=== PATIENT | male | born 1970 | race Caucasian/White ===

== ENCOUNTER 2018-10-08 16:37 | Inpatient (IN) | payer BC, OTHER ==
[~2018-10-08] VITALS: Ht 180.3 cm; Wt 92.1 kg
--- NOTE | 2018-10-08 16:51 | NUR ---
PT AMBULATORY, C/O GROIN AREA DISCOMFORT AND REDNESS SINCE WEDNESDAY. PT STATES ALREADY SEEN BY PMD AND IS ON CIPRO BUT SYMPTOMS NOT RELIEVED. 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 GOWNED AND PLACED ON MONITOR. AWAITING MD DANIELSON.
--- NOTE | 2018-10-08 16:57 | NUR ---
DR HENDERSON AT BEDSIDE FOR EVAL.
[2018-10-08 17:15] LABS: BASOPHILS % (AUTO) 0.3 % (0.0-2.0); EOSINOPHILS % (AUTO) 1.3 % (0.0-6.0); HEMATOCRIT 44 % (39-51); LYMPHOCYTES # (AUTO) 0.6 /CMM (0.8-4.8); LYMPHOCYTES % (AUTO) 6.5 % (20.0-44.0); MEAN CORPUSCULAR HGB CONC 34 g/dl (31.0-36.0); MEAN CORPUSCULAR VOLUME 94 fL (80-96); MONOCYTES # (AUTO) 0.8 /CMM (0.1-1.30); MONOCYTES % (AUTO) 8.3 % (2.0-12.0); NEUTROPHILS # (AUTO) 7.8 /CMM (1.8-8.9); NEUTROPHILS % (AUTO) 83.6 % (43.0-81.0); PLATELET COUNT (AUTO) 167 /CMM (150-450); RED BLOOD CELL COUNT(AUTO) 4.62 MIL/uL (4.5-6.0); WHITE BLOOD COUNT (AUTO) 9.4 K/uL (4.3-11.0)
[2018-10-08 17:29] LABS: CALCIUM, SERUM 8.8 mg/dL (8.5-10.1); CARBON DIOXIDE 27 mmol/L (21-32); CHLORIDE 101 mmol/L (98-107); CREATININE 1.2 mg/dL (0.6-1.3); GLUCOSE 100 mg/dL (74-106); SODIUM SERUM 138 mmol/L (136-145); UREA NITROGEN, BLOOD 12 mg/dL (7-18)
[2018-10-08] MEDS ORDERED: IV NS 0.9% 1,000 ML BAG IV ONE (17:30)
[2018-10-08] MEDS ORDERED: ACETAMINOPHEN ES 500 MG TABLET PO ONE (17:30)
[2018-10-08] MEDS ORDERED: PIPERACILLIN /TAZOBACTAM 3.375 G in IV D5W 50 ML IV ONE (17:30)
[2018-10-08 17:34] LABS: ALANINE AMINOTRANSFERASE 47 U/L (12-78); ALBUMIN 3.8 g/dL (3.4-5.0); ALKALINE PHOSPHATASE 91 U/L (46-116); ASPARTATE AMINOTRANSFERASE 22 U/L (15-37); BILIRUBIN,DIRECT 0.2 mg/dL (0.0-0.2); TOTAL PROTEIN, SERUM 7.8 g/dL (6.4-8.2)
[2018-10-08] MEDS ORDERED: ACETAMINOPHEN ES 500 MG TABLET ONE (17:34)
[2018-10-08] MEDS ORDERED: CT SWABBABLE VALVE TRANS SET 1 EA INFUS.SET MC ONE (17:43)
[2018-10-08] MEDS ORDERED: IOHEXOL-300 100 ML VIAL IV ONE (17:43)
[2018-10-08] MEDS ORDERED: IV NS 0.9% 250 ML IV ONE (17:43)
--- NOTE | 2018-10-08 17:52 | NUR ---
PATIENT TO CT.
--- NOTE | 2018-10-08 17:56 | NUR ---
MED-SURGE BED 310-2
--- NOTE | 2018-10-08 18:03 | NUR ---
REPORT GIVEN TO MARIBEL JAVIER. PT AWAITING TRANSFER TO FLOOR.
--- NOTE | 2018-10-08 18:04 | NUR ---
PAGED EPIC DR KWAN)
[2018-10-08] MEDS: VANCOMYCIN 1 GM in IV D5W 250 ML IV ONE (18:15)
[2018-10-08] MEDS ORDERED: CIPR250T4 PO (18:20)
[2018-10-08] MEDS ORDERED: OMEP20CA11 PO (18:20)
[2018-10-08 18:45] LABS: APPEARANCE,URINE Clear (CLEAR); BILIRUBIN,URINE Negative (NEGATIVE); BLOOD, URINE Negative Ery/uL (NEGATIVE); COLOR,URINE Yellow (YELLOW); KETONES,URINE 15 (NEGATIVE); LEUKOCYTE ESTERASE ,URINE Negative (NEGATIVE); NITRITE, URINE Negative (NEGATIVE); PH,URINE 6.5 (5.0-8.0); PROTEIN,URINE Negative (NEGATIVE); UGLUCOSE Negative (NEGATIVE); UROBILINOGEN,URINE 0.2 EU/dL (0.2)
--- NOTE | 2018-10-08 19:20 | NUR ---
report given to sara mariscal.
[2018-10-08 21:00] VITALS: BP 130/51
[2018-10-08] MEDS ORDERED: ACETAMINOPHEN 325 MG TABLET PO PRN (21:00)
[2018-10-08] MEDS ORDERED: ONDANSETRON HCL/PF 4 MG/2 ML VIAL IVP PRN (21:00)
[2018-10-08] MEDS ORDERED: MAG HYDROX/AL HYDROX/SIMETH 30 ML UDC PO PRN (21:00)
[2018-10-08] MEDS ORDERED: HYDROCODONE/APAP 10/325MG 1 EA TABLET PO PRN (21:00)
[2018-10-08] MEDS ORDERED: MAGNESIUM HYDROXIDE 30 ML UDC PO PRN (21:00)
[2018-10-08] MEDS ORDERED: MORPHINE SULFATE INJ 4 MG/ML DISP.SYRIN IV PRN (21:00)
[2018-10-08] MEDS: IV NS 0.9% 1,000 ML IV PRN (21:31)
--- NOTE | 2018-10-08 23:30 | NUR ---
MSD/RN RECEIVED PATIENT AT 21:00 FROM [facility]. PATIENT WAS AWAKE, ALERT, ORIENTED, COMFORTABLE, NO C/O PAIN, NO DISTRESS NOTED, ADMISSION DONE PER PROTOCOL, TOOK PHOTO OF THE CELLULITIS, REFUSED SKIN ASSESSMENT, PLAN OF CARE DISCUSSED, VERBALIZED UNDERSTANDING AND AGREEMENT, WILL MONITOR.
[2018-10-09] MEDS ORDERED: PIPERACILLIN /TAZOBACTAM 3.375 G in IV D5W 50 ML IV SCH ×2
[2018-10-09] MEDS ORDERED: PIPERACILLIN /TAZOBACTAM 3.375 G VIAL IV ONE (00:34)
[2018-10-09] MEDS: ZOLPIDEM TARTRATE 5 MG TABLET PO PRN ×2 (00:48→22:59)
[2018-10-09] MEDS ORDERED: VANCOMYCIN 500 MG VIAL ONE (05:00)
[2018-10-09] MEDS ORDERED: VANCOMYCIN 1.25 GM in IV D5W 500 ML IV ONE (05:00)
[2018-10-09] MEDS ORDERED: VANCOMYCIN 1 GM VIAL ONE (05:23)
--- NOTE | 2018-10-09 05:35 | NUR ---
MS/RN VANCOMYCIN TOTAL 1500 MG WAS OVERRIDDEN (500 MG BY REAMER HAND, 1,000MG BY THE DIGITAL RECRUITER), 1,250 MG WAS ADMINISTERED ORDERED.
[2018-10-09 06:09] LABS: BASOPHILS % (AUTO) 0.4 % (0.0-2.0); EOSINOPHILS % (AUTO) 1.9 % (0.0-6.0); HEMATOCRIT 40 % (39-51); HEMOGLOBIN 13.6 g/dL (13.5-17.5); LYMPHOCYTES # (AUTO) 1.1 /CMM (0.8-4.8); MEAN CORPUSCULAR HGB CONC 34 g/dl (31.0-36.0); MEAN CORPUSCULAR VOLUME 95 fL (80-96); MONOCYTES # (AUTO) 0.8 /CMM (0.1-1.30); MONOCYTES % (AUTO) 8.8 % (2.0-12.0); NEUTROPHILS # (AUTO) 7.3 /CMM (1.8-8.9); NEUTROPHILS % (AUTO) 76.9 % (43.0-81.0); PLATELET COUNT (AUTO) 146 /CMM (150-450); RED BLOOD CELL COUNT(AUTO) 4.18 MIL/uL (4.5-6.0); WHITE BLOOD COUNT (AUTO) 9.5 K/uL (4.3-11.0)
--- NOTE | 2018-10-09 06:19 | NUR ---
MS/RN PATIENT IS STILL SLEEPING AT THIS TIME, APPEAR COMFORTABLE, NO SIGNS OF DISTRESS NOTED, CALL LIGHT IN REACH, ALL NEEDS ATTENDED AT THIS TIME, WILL CONTINUE TO MONITOR.
[2018-10-09 06:40] LABS: CALCIUM, SERUM 8.1 mg/dL (8.5-10.1); CREATININE 1.1 mg/dL (0.6-1.3); MAGNESIUM 1.9 mg/dL (1.8-2.4); PHOSPHORUS 3.3 mg/dL (2.5-4.9); POTASSIUM 3.7 mmol/L (3.5-5.1)
[2018-10-09] MEDS ORDERED: FEE PK DOSING 1 MIN EA MC ONE (07:02)
[2018-10-09 08:00] VITALS: BP 101/59
[2018-10-09 08:05] VITALS: BP 101/59
[2018-10-09] MEDS: PIPERACILLIN /TAZOBACTAM 3.375 G in IV D5W 50 ML IV SCH ×4 (08:58→23:01)
[2018-10-09] MEDS: IV NS 0.9% 1,000 ML IV PRN (13:59)
[2018-10-09 15:48] VITALS: BP 116/72
[2018-10-09] MEDS: VANCOMYCIN 1.25 GM in IV D5W 500 ML IV SCH (17:01)
[2018-10-09] MEDS: LACTOBACILLUS RHAMNOSUS GG 1 EACH CAP.SPRINK PO SCH (17:02)
--- NOTE | 2018-10-09 18:48 | NUR ---
Patient resting in bed with no distress noted, a/ox4 . Patient in stable condition on room air saturating 99 %.No complain of pain at this time. All needs attended. Safety precautions in place, call light within reach.Will endorse to next shift for AMANDA.
--- NOTE | 2018-10-09 19:00 | NUR ---
RN MS OPENING NOTES RECEIVED PATIENT IN BED AWAKE ALERT AND ORIENTED X 4, RESPIRATIONS EVEN AND UNLABORED WITH EQUAL RISE AND FALL OF CHEST, DENIES ANY PAIN OR DISCOMFORT AT THIS TIME, ON ASSESSMENT RIGHT GROIN SITE WITH REDNESS, SKIN REMAINS INTACT, NO DRAINAGE PRESENT, URINAL AT BEDSIDE WITHIN REACH, IV SITE TO LEFT AC #18 G INTACT AND PATENT, IVF RUNNING ORDERED, NO REDNESS, NO INFILTRATION PRESENT, ORIENTED TO STAFF AND CALL LIGHT AND KEPT WITHIN REACH, SAFETY PRECAUTIONS IN PLACE, LOW BED AND LOCKED, ALL NEEDS ATTENDED WILL CONTINUE TO MONITOR AND ATTEND TO NEEDS.
[2018-10-09 20:00] VITALS: BP 115/65
--- NOTE | 2018-10-09 22:59 | NUR ---
RN MS NOTES PATIENT COMPLAINT OF HEADACHE AND UNABLE TO SLEEP , REQUESTING FOR PAIN MEDICATION AND SLEEP MEDICATION OFFERED TYLENOL AND AMBIEN , PATIENT AGREED TO TAKE, PRN TYLENOL AND AMBIEN GIVEN , WILL CONTINUE TO MONITOR FOR EFFECTIVENESS, LIGHTS DIMMED.
[2018-10-10] VITALS (9 sets, daily range): BP systolic 106–131; BP diastolic 56–75
[2018-10-10] MEDS: PIPERACILLIN /TAZOBACTAM 3.375 G in IV D5W 50 ML IV SCH ×3 (05:06→18:53)
[2018-10-10] MEDS: IV NS 0.9% 1,000 ML IV PRN (05:42)
[2018-10-10 06:20] LABS: BASOPHILS % (AUTO) 0.5 % (0.0-2.0); EOSINOPHILS % (AUTO) 3.8 % (0.0-6.0); HEMATOCRIT 39 % (39-51); HEMOGLOBIN 13.1 g/dL (13.5-17.5); LYMPHOCYTES # (AUTO) 1.1 /CMM (0.8-4.8); LYMPHOCYTES % (AUTO) 15.3 % (20.0-44.0); MEAN CORPUSCULAR HGB CONC 34 g/dl (31.0-36.0); MEAN CORPUSCULAR VOLUME 95 fL (80-96); MONOCYTES # (AUTO) 0.7 /CMM (0.1-1.30); MONOCYTES % (AUTO) 9.1 % (2.0-12.0); NEUTROPHILS # (AUTO) 5.2 /CMM (1.8-8.9); NEUTROPHILS % (AUTO) 71.3 % (43.0-81.0); PLATELET COUNT (AUTO) 156 /CMM (150-450); RED BLOOD CELL COUNT(AUTO) 4.06 MIL/uL (4.5-6.0); WHITE BLOOD COUNT (AUTO) 7.3 K/uL (4.3-11.0)
--- NOTE | 2018-10-10 06:23 | NUR ---
RN MS CLOSING NOTES PATIENT IN BED AWAKE ALERT AND ORIENTED X 4, RESPIRATIONS EVEN AND UNLABORED WITH EQUAL RISE AND FALL OF CHEST, DENIES ANY PAIN OR DISCOMFORT AT THIS TIME, ON ASSESSMENT RIGHT GROIN SITE WITH REDNESS, SKIN REMAINS INTACT, NO DRAINAGE PRESENT, URINAL AT BEDSIDE WITHIN REACH 900ML OUT PUT URINE YELLOW, IV SITE TO LEFT AC #18 G INTACT AND PATENT, IVF RUNNING ORDERED, NO REDNESS, NO INFILTRATION PRESENT CALL LIGHT KEPT WITHIN REACH, AMBIEN AND TYLENOL WAS EFFECTIVE PATIENT SLEPT WELL , SAFETY PRECAUTIONS IN PLACE, LOW BED AND LOCKED, ALL NEEDS ATTENDED WILL CONTINUE TO MONITOR AND ATTEND TO NEEDS AND ENDORSE TO NEXT SHIFT.
[2018-10-10 06:29] LABS: CALCIUM, SERUM 8.4 mg/dL (8.5-10.1); CREATININE 1.1 mg/dL (0.6-1.3); POTASSIUM 3.8 mmol/L (3.5-5.1)
[2018-10-10] MEDS: VANCOMYCIN 1.25 GM in IV D5W 500 ML IV SCH ×3 (06:48→22:44)
--- NOTE | 2018-10-10 07:30 | NUR ---
MS RN OPENING NOTES RECEIVED PATIENT IN BED. A/O X4. PATIENT IS ON ROOM AIR. RESPIRATION EVEEN AND UNLABORED. DENIES SOB. DENIES PAIN AT THIS TIME. NO APPARENT DISTRESS AT THIS TIME. IV ACCESS LEFT AC GAUGE 18 RUNNING NS@75ML/HR. BED IS LOW AND LOCKED. CALL LIGHT WITHIN REACH. WILL CONTINUE TO MONITOR.
[2018-10-10] MEDS: LACTOBACILLUS RHAMNOSUS GG 1 EACH CAP.SPRINK PO SCH ×2 (08:51→18:52)
--- NOTE | 2018-10-10 11:47 | NUR ---
MS RN NOTE PATIENT VERBALIZED THE WOUND ON THE GROIN IS GETTING "DARKER". DEV MATRIX BATH OPERATOR NOTIFIED.
--- NOTE | 2018-10-10 12:00 | NUR ---
MS RN NOTE DR. HEARD SAW AND SPOKE WITH THE PATIENT ABOUT SURGERY. NPO [address] HEARD.
--- NOTE | 2018-10-10 16:01 | NUR ---
MS RN NOTE PATIENT LEFT FOR SURGERY IN STABLE CONDITION.
[2018-10-10] MEDS ORDERED: FENTANYL PF 250MCG/5ML AMPUL ONE (16:28)
[2018-10-10] MEDS ORDERED: MIDAZOLAM HCL 2 MG/2ML VIAL ONE (16:28)
[2018-10-10] MEDS ORDERED: FAMOTIDINE/PF INJ 20 MG/2 ML VIAL IV ONE (16:28)
[2018-10-10] MEDS ORDERED: BUPIVACAINE 0.25% 75 MG/30 ML VIAL ONE (16:36)
[2018-10-10] MEDS ORDERED: HYDROGEN PEROXIDE 480 ML BOTTLE ONE (16:52)
[2018-10-10] MEDS ORDERED: HYDROMORPHONE 1 MG/1 ML DISP.SYRIN ONE (17:16)
--- NOTE | 2018-10-10 18:20 | NUR ---
MS RN NOTE PATIENT IS BACK FROM THE OR IN BED. A/O X4. ON ROOM AIR. SAT 96%. RESPIRATION ARE REGULAR AND NONLABORED. DENIES PAIN AT THIS TIME. BILATERAL PULSES WNL. RIGHT GROIN DRESSING INTACT. NO BLEEDING OR DISCHARGE NOTED AT THIS TIME. WILL CONTINUE TO MONITOR.
--- NOTE | 2018-10-10 18:21 | NUR ---
MS RN CLOSING NOTE PATIENT RESTING IN BED. ON ROOM AIR, SAT 98%. RESPIRATION EVEN AND NONLABORED. DENIES PAIN AT THIS TIME. NO APPARENT DISTRESS NOTED. IV ACCESS IN LEFT AC RUNNING NS @75ML/HR. NO COMPLAINTS OF INTOLERABLE PAIN DURING SHIFT. ALL NURSES NEEDS MET. BED IS LOW AND LOCKED. CALL LIGHT WITHIN REACH. WILL ENDORSE TO OPERATION RESEARCH ANALYST FOR AMANDA.
[2018-10-10] MEDS ORDERED: HYDROCODONE/APAP 5/325MG 1 EACH TABLET PO PRN (19:30)
[2018-10-10] MEDS ORDERED: MORPHINE SULFATE INJ 2 MG/ML DISP.SYRIN IV PRN (19:30)
--- NOTE | 2018-10-10 19:55 | NUR ---
MS/RN RECEIVED PATIENT ON BED AWAKE, ALERT, ORIENTED, COMFORTABLE, S/P I&D OF THE ABSCESS AT RT. INNER THIGH, NO C/O PAIN, NO DISTRESS NOTED, CALL LIGHT IN REACH. WILL MONITOR.
[2018-10-11] MEDS: ZOLPIDEM TARTRATE 5 MG TABLET PO PRN (00:16)
[2018-10-11 00:30] VITALS: BP 113/70
[2018-10-11] MEDS: PIPERACILLIN /TAZOBACTAM 3.375 G in IV D5W 50 ML IV SCH ×4 (00:58→17:37)
--- NOTE | 2018-10-11 06:49 | NUR ---
MS/RN PATIENT IS SLEEPING, AROUSES EASILY, APPEAR COMFORTABLE, NO SIGNS OF DISTRESS NOTE, CALL LIGHT IN REACH. ALL NEEDS ATTENDED AT THIS TIME, WILL CONTINUE TO MONITOR.
[2018-10-11] MEDS: VANCOMYCIN 1.25 GM in IV D5W 500 ML IV SCH ×2 (06:54→15:59)
[2018-10-11] MEDS: IV NS 0.9% 1,000 ML IV PRN (06:54)
[2018-10-11 07:27] LABS: CALCIUM, SERUM 8.5 mg/dL (8.5-10.1); CREATININE 0.8 mg/dL (0.6-1.3); MAGNESIUM 2.3 mg/dL (1.8-2.4); PHOSPHORUS 3.8 mg/dL (2.5-4.9); POTASSIUM 3.9 mmol/L (3.5-5.1)
[2018-10-11 07:45] LABS: BASOPHILS % (AUTO) 0.3 % (0.0-2.0); EOSINOPHILS % (AUTO) 0.2 % (0.0-6.0); HEMATOCRIT 39 % (39-51); HEMOGLOBIN 13.5 g/dL (13.5-17.5); LYMPHOCYTES # (AUTO) 0.7 /CMM (0.8-4.8); LYMPHOCYTES % (AUTO) 9.6 % (20.0-44.0); MEAN CORPUSCULAR HGB CONC 35 g/dl (31.0-36.0); MEAN CORPUSCULAR VOLUME 94 fL (80-96); MONOCYTES # (AUTO) 0.5 /CMM (0.1-1.30); MONOCYTES % (AUTO) 6.6 % (2.0-12.0); NEUTROPHILS # (AUTO) 5.8 /CMM (1.8-8.9); NEUTROPHILS % (AUTO) 83.3 % (43.0-81.0); PLATELET COUNT (AUTO) 182 /CMM (150-450); RED BLOOD CELL COUNT(AUTO) 4.16 MIL/uL (4.5-6.0); WHITE BLOOD COUNT (AUTO) 6.9 K/uL (4.3-11.0)
--- NOTE | 2018-10-11 07:50 | NUR ---
MS RN RECEIVED ON BED, AWAKE,ALERT,ORIENTED X4,NOT IN ANY FORM OF DISTRESS,RESPIRATIONS EVEN AND UNLABORED,NO SOB NOTED, ABDOMEN SOFT,POSITIVE BOWEL SOUNDS, DENIES PAIN AT THIS TIME. WILL MONITOR PATIENT'S CONDITION.
[2018-10-11 08:00] VITALS: BP 119/69
--- NOTE | 2018-10-11 09:00 | NUR ---
MS JAVIER BREAKFAST SERVED DUE MEDS GIVEN,TOLERATED WELL.
[2018-10-11] MEDS: LACTOBACILLUS RHAMNOSUS GG 1 EACH CAP.SPRINK PO SCH ×2 (09:36→17:37)
--- NOTE | 2018-10-11 11:00 | NUR ---
MS RN DR HEARD,CALLED, THAT HE IS CLEARING PATIENT, OK TO GO HOME W/ ATB PO, BECKIE NOTIFIED.
[2018-10-11] MEDS ORDERED: HYDR-4384 PO (15:11)
[2018-10-11] MEDS ORDERED: ONDA4TAB11 PO (15:11)
[2018-10-11] MEDS ORDERED: SULF1TAB48 PO (15:11)
--- NOTE | 2018-10-11 15:40 | NUR ---
MS RN` WAS SEEN BY BECKIE Zuniga/ CLYDE.
[2018-10-11 16:00] VITALS: BP 122/73
--- NOTE | 2018-10-11 16:41 | NUR ---
MS RN PATIENT WILL BE DISCHARGE TODAY.
--- NOTE | 2018-10-11 17:30 | NUR ---
ms rn dressing to right groin changed, refused to take picture of the wound, pain meds given.
--- NOTE | 2018-10-11 18:40 | NUR ---
ms rn patient went home w/ rx and discharge instruction given and understood.
== END 2018-10-11 19:00 | disposition home or self-care (01) | DRG 854 ==
LOC: ER 16:37 → MED 20:06
PROVIDERS: ADMIT Nurse Practitioner Acute Care; ATTEND Nurse Practitioner Acute Care
PROC: 0J9L0ZZ Drainage of Right Upper Leg Subcutaneous Tissue and Fascia, Open Approach (ICD-10-PCS; principal; 2018-10-10)
DX: A41.9 Sepsis, unspecified organism (principal); L02.214 Cutaneous abscess of groin; L03.314 Cellulitis of groin; K21.9 Gastro-esophageal reflux disease without esophagitis; F41.9 Anxiety disorder, unspecified; F32.9 Major depressive disorder, single episode, unspecified; Z91.013 Allergy to seafood; R50.9 Fever, unspecified
CPT/HCPCS: 36415; 72192-TC; 76882; 80048-TC; 80061-TC; 80076-TC; 80202-TC; 81000-TC; 83605-TC; 83735-TC; 84100-TC; 84484-TC; 85025-TC; 85730-TC; 87040-TC; 87070-TC; 87075-TC; 87081-TC; 87086-TC; A4217; A6253; G0378; J1100; J1170; J2250; J2405; J2543; J2704; J3010; J3370; J3490; J7030; J7040; J7050; J7060; Q9967

== ENCOUNTER → 2018-10-14 | Emergency (ER) | payer OTHER ==
[~2018-10-14] VITALS: Ht 170.2 cm; Wt 65.8 kg
[~2018-10-14] MED LIST: HYDR-4384 PO; OMEP20CA11 PO; ONDA4TAB11 PO; SULF1TAB48 PO
[2018-10-14 17:59] VITALS: BP 156/89
== END | disposition home or self-care (01) ==
LOC: ER 17:25
DX: L02.214 Cutaneous abscess of groin (principal); K21.9 Gastro-esophageal reflux disease without esophagitis; F32.9 Major depressive disorder, single episode, unspecified; F41.9 Anxiety disorder, unspecified; F10.10 Alcohol abuse, uncomplicated; Y90.9 Presence of alcohol in blood, level not specified; Z60.2 Problems related to living alone; Z91.013 Allergy to seafood

== ENCOUNTER 2018-11-15 20:32 | Emergency (ER) | payer OTHER ==
[~2018-11-15] VITALS: Ht 177.8 cm; Wt 86.2 kg
[2018-11-15 21:39] VITALS: BP 131/75
== END 2018-11-15 23:14 | disposition home or self-care (01) ==
LOC: ER 20:38
DX: R59.1 Generalized enlarged lymph nodes (principal); F32.9 Major depressive disorder, single episode, unspecified; F41.9 Anxiety disorder, unspecified; K21.9 Gastro-esophageal reflux disease without esophagitis; Z91.013 Allergy to seafood; Z60.2 Problems related to living alone; Z79.899 Other long term (current) drug therapy

== ENCOUNTER 2018-11-20 16:24 | Emergency (ER) | payer OTHER ==
[~2018-11-20] VITALS: Ht 177.8 cm; Wt 87.1 kg
--- NOTE | 2018-11-20 16:40 | NUR ---
CAME IN FOR RED AND SWOLLEN LUMP ON RIGHT ARMPIT. TO ER BED 12, HOOKED TO MONITOR, AWAITING MD DANIELSON.
--- NOTE | 2018-11-20 16:45 | NUR ---
PA FOSTER AT BEDSIDE
[2018-11-20] MEDS ORDERED: TDAP [DIPH/PERTUSSIS/TET] 0.5 ML VIAL IM ONE ×2 (17:00→17:07)
[2018-11-20] MEDS ORDERED: LIDOCAINE 1%-EPI 1:100,000 20 ML VIAL TP ONE (17:00)
[2018-11-20] MEDS ORDERED: LIDOCAINE 1% INJ 50 ML MDV IJ ONE (17:01)
[2018-11-20 17:44] VITALS: BP 128/81
--- NOTE | 2018-11-20 17:44 | NUR ---
Patient discharged to home in stable condition. Written and verbal after care instructions given. Patient verbalizes understanding of instruction.
== END 2018-11-20 17:45 | disposition home or self-care (01) ==
LOC: ER 16:27
DX: L02.411 Cutaneous abscess of right axilla (principal); F32.9 Major depressive disorder, single episode, unspecified; F41.9 Anxiety disorder, unspecified; K21.9 Gastro-esophageal reflux disease without esophagitis; F10.10 Alcohol abuse, uncomplicated; Y90.9 Presence of alcohol in blood, level not specified; Z91.013 Allergy to seafood; Z60.2 Problems related to living alone
CPT/HCPCS: 10060; 90471; 90715; 99283; A6407; J3490

== ENCOUNTER 2018-11-22 13:47 | Emergency (ER) | payer OTHER ==
[~2018-11-22] VITALS: Ht 177.8 cm; Wt 82.6 kg
[2018-11-22] MEDS ORDERED: LIDOCAINE 1%-EPI 1:100,000 20 ML VIAL ONE (14:14)
[2018-11-22] MEDS ORDERED: IBUPROFEN 600 MG TABLET PO ONE (15:00)
[2018-11-22 15:56] VITALS: BP 118/79
--- NOTE | 2018-11-22 16:01 | NUR ---
Patient discharged to home in stable condition. Written and verbal after care instructions given. Patient verbalizes understanding of instruction.
== END 2018-11-22 16:02 | disposition home or self-care (01) ==
LOC: ER 13:53
DX: L02.411 Cutaneous abscess of right axilla (principal); N43.3 Hydrocele, unspecified; K64.4 Residual hemorrhoidal skin tags; F32.9 Major depressive disorder, single episode, unspecified; F41.9 Anxiety disorder, unspecified; K21.9 Gastro-esophageal reflux disease without esophagitis; Z91.013 Allergy to seafood; Z60.2 Problems related to living alone; Z79.899 Other long term (current) drug therapy
CPT/HCPCS: 10060; 76870; 99284; A6403; A6407; J3490

== ENCOUNTER 2018-11-24 14:47 | Emergency (ER) | payer OTHER ==
[~2018-11-24] VITALS: Ht 177.8 cm; Wt 81.6 kg
[2018-11-24 14:47] VITALS: BP 115/73
[~2018-11-24 14:47] MED LIST changes: -OMEP20CA11 PO; +OMEP20CA15 PO
[2018-11-24] MEDS ORDERED: LIDOCAINE 1%-EPI 1:100,000 20 ML VIAL ONE (16:12)
[2018-11-24] MEDS ORDERED: LIDOCAINE 1%-EPI 1:100,000 20 ML VIAL TP ONE (16:30)
== END 2018-11-24 16:54 | disposition home or self-care (01) ==
LOC: ER 14:47
DX: L02.411 Cutaneous abscess of right axilla (principal); F32.9 Major depressive disorder, single episode, unspecified; F41.9 Anxiety disorder, unspecified; K21.9 Gastro-esophageal reflux disease without esophagitis; Z91.013 Allergy to seafood; Z60.2 Problems related to living alone; Z79.899 Other long term (current) drug therapy
CPT/HCPCS: 10060; 99283; A6403; A6407; J3490